=== PATIENT | male | born 1930 | race Caucasian/White ===

== ENCOUNTER 2019-06-28 09:51 | Inpatient (IN) | payer MEDICARE ==
[2019-06-28 15:51] LABS: Basophils % (Auto) 0.3 % (0.0-1.8); Eosinophils % (Auto) 0.3 % (0.0-4.3); Hematocrit 42.7 % (35.5-45.6); Hemoglobin 14.1 gm/dl (11.8-15.2); Lymphocytes # (Auto) 1.4 K/mm3 (1.2-5.4); Lymphocytes % (Auto) 15.2 % (13.4-35.0); Mean Corpuscular HGB Conc 33 % (32-34); Mean Corpuscular Volume 93 fl (84-94); Monocytes # (Auto) 1.1 K/mm3 (0.0-0.8); Platelet Count 318 K/mm3 (140-440); Red Blood Count 4.59 M/mm3 (3.65-5.03); Red Cell Distribution Width 14.8 % (13.2-15.2)
[2019-06-28 16:15] LABS: Calcium 9.8 mg/dL (8.4-10.2)
[2019-06-28 16:16] LABS: Albumin 4.2 g/dL (3.9-5)
[2019-06-28 16:39] LABS: Chol/HDL Ratio 3.5 %
[2019-06-28] MEDS ORDERED: HALDOL IM PRN (19:54)
[2019-06-28] MEDS ORDERED: ATIVAN IM PRN (19:54)
--- NOTE | 2019-06-29 07:32 | History and Physical Report ---
GP History & Physical - History of Present Illness Date of admission: 06/28/19 Date of Examination: 06/29/19 Reason for Admission: Danger to self, Severe anxiety/depression Chief Complaint: Hallucination, dementia History of Present Illness: Nurses reported that patient was admitted 28 Jun 2019 for hallucination. Police found 89 year old male found wandering the street and unaware of his surroundings and location of his home. Family stated that this started in 2017 and has began to happen more frequently. Pt does not have any previous pysch history. Nurse states that family reported the pt normally have these episodes as time gets closer to the day his . Pt did not sleep well last night, only received 3 hours of sleep. Patient has been calm and pleasant. MSE Orientation: person Affect: calm and pleasant Mood: congruent with affect Thought Process: Disorganized Perceptions: none Speech: paucity Concentration: focused Motor activity: normal Level of consciousness: alert Memory: Recent Impaired, Remote Impaired Interaction: pleasant Legal Status: Involuntary Patient Problems: Current Active Problems Major neurocognitive disorder due to Alzheimer's disease, with behavioral disturbance (Acute) Reaction to Hospitalization: Accepting Medications and Allergies Allergies Allergy/AdvReac Type Severity Reaction Status Date / Time No Known Drug Allergies Allergy Unknown Verified 06/28/19 14:58 Home Medications Medication Instructions Recorded Confirmed Last Taken Type Aspirin EC 81 mg PO DAILY 06/28/19 06/28/19 06/28/19 10:00 History 81 mg Atorvastatin 20 mg PO HS 06/28/19 06/28/19 06/27/19 22:00 History Ciprofloxacin TAB 500 mg PO BID 06/28/19 06/28/19 06/28/19 10:00 History Famotidine [Pepcid] 20 mg PO DAILY 06/28/19 06/28/19 06/28/19 10:00 History Latanoprost 0.005% 1 drop OU HS 06/28/19 06/28/19 06/27/19 22:00 History Levothyroxine 25 mcg PO DAILY 06/28/19 06/28/19 06/28/19 07:30 History Linaclotide [Linzess] 72 mcg PO DAILY 06/28/19 06/28/19 06/28/19 10:00 History Metoprolol [Lopressor TAB] 25 mg PO DAILY 06/28/19 06/28/19 06/28/19 10:00 History 25 mg Metronidazole 500 mg PO Q8HR 06/28/19 06/28/19 06/28/19 10:00 History amLODIPine 5 mg PO DAILY 06/28/19 06/28/19 06/28/19 10:00 History traMADol [Ultram 50 MG tab] 50 mg PO TID 06/28/19 06/28/19 06/28/19 10:00 History Active Meds: Active Medications Haloperidol Lactate (Haldol) 5 mg IM Q6H PRN PRN Reason: Agitation Lorazepam (Ativan) 1 mg IM Q6H PRN PRN Reason: Agitation Substance History - Substance History Drug Use: none Hx Tobacco Use: No Alcohol Use: Yes Past psychiatric history - Past Medical History Past Medical History: hypertension, hyperlipidemia, other (Cardiac-pacemaker) Past Surgical History: No surgical history - Social History Social history: Review of Systems Psychiatric: memory loss, change in sleep habits, insomnia, hallucinations, confusion Results - Results Labs/Vitals: Laboratory Last Values WBC 8.9 K/mm3 (4.5-11.0) 06/28/19 15:32 RBC 4.59 M/mm3 (3.65-5.03) 06/28/19 15:32 Hgb 14.1 gm/dl (11.8-15.2) 06/28/19 15:32 Hct 42.7 % (35.5-45.6) 06/28/19 15:32 MCV 93 fl (84-94) 06/28/19 15:32 MCH 31 pg (28-32) 06/28/19 15:32 MCHC 33 % (32-34) 06/28/19 15:32 RDW 14.8 % (13.2-15.2) 06/28/19 15:32 Plt Count 318 K/mm3 (140-440) 06/28/19 15:32 Lymph % (Auto) 15.2 % (13.4-35.0) 06/28/19 15:32 [place] % (Auto) 12.0 % (0.0-7.3) H 06/28/19 15:32 Eos % (Auto) 0.3 % (0.0-4.3) 06/28/19 15:32 Baso % (Auto) 0.3 % (0.0-1.8) 06/28/19 15:32 Lymph # 1.4 K/mm3 (1.2-5.4) 06/28/19 15:32 [place] # 1.1 K/mm3 (0.0-0.8) H 06/28/19 15:32 Eos # 0.0 K/mm3 (0.0-0.4) 06/28/19 15:32 Baso # 0.0 K/mm3 (0.0-0.1) 06/28/19 15:32 Seg Neutrophils % 72.2 % (40.0-70.0) H 06/28/19 15:32 Seg Neutrophils # 6.4 K/mm3 (1.8-7.7) 06/28/19 15:32 Sodium 136 mmol/L (137-145) L 06/28/19 15:32 Potassium 4.9 mmol/L (3.6-5.0) 06/28/19 15:32 Chloride 97.4 mmol/L (98-107) L 06/28/19 15:32 Carbon Dioxide 23 mmol/L (22-30) 06/28/19 15:32 Anion Gap 21 mmol/L 06/28/19 15:32 BUN 23 mg/dL (9-20) H 06/28/19 15:32 Creatinine 1.4 mg/dL (0.8-1.5) 06/28/19 15:32 Estimated GFR 48 ml/min 06/28/19 15:32 BUN/Creatinine Ratio 16 % 06/28/19 15:32 Glucose 125 mg/dL (75-100) H 06/28/19 15:32 POC Glucose 124 (70-105) H 06/28/19 16:46 Hemoglobin A1c 5.7 % (4-6) 06/28/19 15:32 Calcium 9.8 mg/dL (8.4-10.2) 06/28/19 15:32 Total Bilirubin 0.60 mg/dL (0.1-1.2) 06/28/19 15:32 AST 25 units/L (5-40) 06/28/19 15:32 ALT 12 units/L (7-56) 06/28/19 15:32 Alkaline Phosphatase 114 units/L (35-129) 06/28/19 15:32 Total Protein 9.1 g/dL (6.3-8.2) H 06/28/19 15:32 Albumin 4.2 g/dL (3.9-5) 06/28/19 15:32 Albumin/Globulin Ratio 0.9 % 06/28/19 15:32 Triglycerides 73 mg/dL (2-149) 06/28/19 15:32 Cholesterol 119 mg/dL (50-199) 06/28/19 15:32 LDL Cholesterol Direct 77 mg/dL (50-130) 06/28/19 15:32 HDL Cholesterol 34 mg/dL (40-59) L 06/28/19 15:32 Cholesterol/HDL Ratio 3.50 % 06/28/19 15:32 Last Vital Signs Temp 97.7 F 06/28/19 22:40 Pulse 60 06/28/19 22:40 Resp 18 06/28/19 22:40 BP 165/63 06/28/19 22:40 Pulse Ox 99 06/28/19 22:40 Physical Examination - Constitutional Vitals: Vital Signs Temp Pulse Resp BP Pulse Ox 97.7 F 60 18 165/63 99 06/28/19 22:40 06/28/19 22:40 06/28/19 22:40 06/28/19 22:40 06/28/19 22:40 Temperature -Last 24 Hours Temperature 97.7 F Temperature 97.5 F Temperature 97.3 F General appearance: Present: no acute distress - EENT Eyes: Present: PERRL, EOM intact, irregular pupil ENT: hearing intact, clear oral mucosa - Neck Neck: Present: supple, normal ROM Mental Status Exam - Vital signs Last Vital Signs Temp 97.7 F 06/28/19 22:40 Pulse 60 06/28/19 22:40 Resp 18 06/28/19 22:40 BP 165/63 06/28/19 22:40 Pulse Ox 99 06/28/19 22:40 Assessment and Plan - Psychiatric problem (1) Major neurocognitive disorder due to Alzheimer's disease, with behavioral disturbance Current Visit: Yes Status: Acute plan to address problem: Patient will be admitted for inpatient psychiatric evaluation, medication adjustment and close monitoring The patient's behavior, mood, sleep and appetite will be closely monitored. Patient will be enrolled in individual and group therapeutic sessions and encouraged to attend. Patient will be provided with a safe and structured environment. Patient's physical health needs will be addressed by the Hospitalist. Social Assessment will be completed and the High Man will work with patient and family to ensure a suitable and safe disposition Medication adjustment will be made as clinically indicated The patient agreed on the treatment plan, understood the risk, benefit, alternative treatment, potential consequence of no treatment, and gave informed consent. Physician Certification - Certification Statement Physician Certification Statement: This is an acknowledgement statement that ELENA VILLASEÑOR is a 89 year old M who requires inpatient psychiatric admission for treatment which could reasonably be expected to improve the patient's condition for confusion Estimated period of time patient will need to remain in the hospital: 7 days Plan for post-hospital care: out-patient care
[2019-06-29] MEDS ORDERED: METRONIDAZOLE 500 MG PO SCH (08:30)
[2019-06-29] MEDS: HALFPRIN EC PO SCH (09:45)
[2019-06-29] MEDS: PEPCID PO SCH (09:49)
[2019-06-29] MEDS: SYNTHROID PO SCH (09:50)
[2019-06-29] MEDS ORDERED: NON-FORMULARY (Amlodipine 5 MG) PO SCH (10:00)
[2019-06-29] MEDS ORDERED: LINACLOTIDE 72 MCG PO SCH (10:00)
[2019-06-29] MEDS ORDERED: LEVOTHYROXINE 25 MCG PO SCH (10:00)
[2019-06-29] MEDS ORDERED: CIPROFLOXACIN 500 MG PO SCH (10:00)
[2019-06-29] MEDS ORDERED: NON-FORMULARY (Aspirin Ec 81 MG) PO SCH (10:00)
[2019-06-29] MEDS: METOPROLOL PO SCH (11:01)
[2019-06-29] MEDS: ULTRAM PO SCH ×3 (11:54→20:40)
[2019-06-29] MEDS: FLAGYL PO SCH ×2 (18:30→21:03)
[2019-06-29] MEDS: LATANOPROST 0.005% OU SCH (18:34)
[2019-06-29] MEDS: LEVAQUIN PO SCH (19:20)
[2019-06-29] MEDS ORDERED: NON-FORMULARY (Atorvastatin 20 MG) PO SCH (22:00)
[2019-06-29] MEDS ORDERED: NON-FORMULARY (Latanoprost 0.005% 1 DROP) OU SCH (22:00)
[2019-06-30] MEDS: FLAGYL PO SCH ×3 (05:39→21:19)
[2019-06-30] MEDS: SYNTHROID PO SCH (05:39)
[2019-06-30] MEDS: ULTRAM PO SCH ×3 (10:12→20:21)
[2019-06-30] MEDS: HALFPRIN EC PO SCH (10:13)
[2019-06-30] MEDS: PEPCID PO SCH (10:13)
[2019-06-30] MEDS: LEVAQUIN PO SCH (10:14)
--- NOTE | 2019-06-30 10:15 | Progress Note ---
Subjective Date of service: 06/30/19 Principal diagnosis: Dementia Subjective Comment: Met with 89 year old , retired, male regarding the reason for him being admitted. Pt states that he is unsure why he is here. Pt lives alone but daughter and sister stay next door. 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 Pt reports that he was going to check on the dogs and it was raining so that kept him out longer than he had planned. He said an officer then got him because he believed that he was lost and wandering the streets. Pt said he was then taken to a hospital where they had requested him to stay overnight and he stated that it was fine and he would stay. Pt stated that shortly after this incident an ambulance picked him up and placed him here and he had no clue what was going on. Pt denies that he was loss and denies any memory loss issues. Pt states that the only weapons in possession is used to taylor. Pt denies any legal history and states that he had never been admitted nor seen a psychiatrist. Pt denies hearing voices, hallucination, or paranoia. Pt reported that he has no family history of dementia. Pt denies the use of drugs, tobacco or alcohol. Pt denies SI/AVH/HI MSE Orientation: person Affect: pleasant and calm Mood: congruent with affect Thought Process: organized Perceptions: none Speech: paucity Concentration: focus Motor activity: normal Level of consciousness: alert Memory: Recent Impaired, Remote Impaired Interaction: cooperative Objective - Criteria for Continued Treatment Criteria for Continued Treatment: Improving Level of Functioning - Mental Status Mental Status: Oriented x [address] - Objective Observation Participation Level: Full Assessment and Plan - Patient Problems (1) Major neurocognitive disorder due to Alzheimer's disease, with behavioral disturbance Current Visit: Yes Status: Acute Plan to address problem: Patient will be admitted for inpatient psychiatric evaluation, medication adjustment and close monitoring The patient's behavior, mood, sleep and appetite will be closely monitored. Patient will be enrolled in individual and group therapeutic sessions and encouraged to attend. Patient will be provided with a safe and structured environment. Patient's physical health needs will be addressed by the Hospitalist. Social Assessment will be completed and the Trolley Car Operator will work with patient and family to ensure a suitable and safe disposition Medication adjustment will be made as clinically indicated The patient agreed on the treatment plan, understood the risk, benefit, alternative treatment, potential consequence of no treatment, and gave informed consent. Medications and Allergies Allergies Allergy/AdvReac Type Severity Reaction Status Date / Time No Known Drug Allergies Allergy Unknown Verified 06/28/19 14:58 Home Medications Medication Instructions Recorded Confirmed Last Taken Type Aspirin EC 81 mg PO DAILY 06/28/19 06/28/19 06/28/19 10:00 History 81 mg Atorvastatin 20 mg PO HS 06/28/19 06/28/19 06/27/19 22:00 History Ciprofloxacin TAB 500 mg PO BID 06/28/19 06/28/19 06/28/19 10:00 History Famotidine [Pepcid] 20 mg PO DAILY 06/28/19 06/28/19 06/28/19 10:00 History Latanoprost 0.005% 1 drop OU HS 06/28/19 06/28/19 06/27/19 22:00 History Levothyroxine 25 mcg PO DAILY 06/28/19 06/28/19 06/28/19 07:30 History Linaclotide [Linzess] 72 mcg PO DAILY 06/28/19 06/28/19 06/28/19 10:00 History Metoprolol [Lopressor TAB] 25 mg PO DAILY 06/28/19 06/28/19 06/28/19 10:00 History 25 mg Metronidazole 500 mg PO Q8HR 06/28/19 06/28/19 06/28/19 10:00 History amLODIPine 5 mg PO DAILY 06/28/19 06/28/19 06/28/19 10:00 History traMADol [Ultram 50 MG tab] 50 mg PO TID 06/28/19 06/28/19 06/28/19 10:00 History Active Meds: Active Medications Amlodipine Besylate (Norvasc) 5 mg PO QDAY [facility] Last Admin: 06/29/19 11:00 Dose: 5 mg Documented by: Aspirin (Halfprin Ec) 81 mg PO QDAY [facility] Last Admin: 06/29/19 09:45 Dose: 81 mg Documented by: Atorvastatin Calcium (Lipitor) 20 mg PO QHS [facility] Last Admin: 06/29/19 21:03 Dose: 20 mg Documented by: Famotidine (Pepcid) 20 mg PO DAILY [facility] Last Admin: 06/29/19 09:49 Dose: 20 mg Documented by: Haloperidol Lactate (Haldol) 5 mg IM Q6H PRN PRN Reason: Agitation Latanoprost (Latanoprost 0.005%) 1 drops OU QPM [facility] Last Admin: 06/29/19 18:34 Dose: 1 drops Documented by: Levofloxacin (Levaquin) 250 mg PO DAILY [facility] Stop: 07/06/19 10:01 Last Admin: 06/29/19 19:20 Dose: 250 mg Documented by: Levothyroxine Sodium (Synthroid) 25 mcg PO DAILY@0600 [facility] Last Admin: 06/30/19 05:39 Dose: 25 mcg Documented by: Lorazepam (Ativan) 1 mg IM Q6H PRN PRN Reason: Agitation Metoprolol Tartrate (Lopressor) 25 mg PO DAILY [facility] Last Admin: 06/29/19 11:01 Dose: 25 mg Documented by: Metronidazole (Flagyl) 500 mg PO Q8HR [facility] Last Admin: 06/30/19 05:39 Dose: 500 mg Documented by: Miscellaneous Medication (Linaclotide [Linzess]) 72 mcg PO DAILY [facility] Tramadol HCl (Ultram) 50 mg PO TID [facility] Last Admin: 06/29/19 20:40 Dose: 50 mg Documented by: Results - Results Labs/Vitals: Laboratory Last Values WBC 8.9 K/mm3 (4.5-11.0) 06/28/19 15:32 RBC 4.59 M/mm3 (3.65-5.03) 06/28/19 15:32 Hgb 14.1 gm/dl (11.8-15.2) 06/28/19 15:32 Hct 42.7 % (35.5-45.6) 06/28/19 15:32 MCV 93 fl (84-94) 06/28/19 15:32 MCH 31 pg (28-32) 06/28/19 15:32 MCHC 33 % (32-34) 06/28/19 15:32 RDW 14.8 % (13.2-15.2) 06/28/19 15:32 Plt Count 318 K/mm3 (140-440) 06/28/19 15:32 Lymph % (Auto) 15.2 % (13.4-35.0) 06/28/19 15:32 [place] % (Auto) 12.0 % (0.0-7.3) H 06/28/19 15:32 Eos % (Auto) 0.3 % (0.0-4.3) 06/28/19 15:32 Baso % (Auto) 0.3 % (0.0-1.8) 06/28/19 15:32 Lymph # 1.4 K/mm3 (1.2-5.4) 06/28/19 15:32 [place] # 1.1 K/mm3 (0.0-0.8) H 06/28/19 15:32 Eos # 0.0 K/mm3 (0.0-0.4) 06/28/19 15:32 Baso # 0.0 K/mm3 (0.0-0.1) 06/28/19 15:32 Seg Neutrophils % 72.2 % (40.0-70.0) H 06/28/19 15:32 Seg Neutrophils # 6.4 K/mm3 (1.8-7.7) 06/28/19 15:32 Sodium 136 mmol/L (137-145) L 06/28/19 15:32 Potassium 4.9 mmol/L (3.6-5.0) 06/28/19 15:32 Chloride 97.4 mmol/L (98-107) L 06/28/19 15:32 Carbon Dioxide 23 mmol/L (22-30) 06/28/19 15:32 Anion Gap 21 mmol/L 06/28/19 15:32 BUN 23 mg/dL (9-20) H 06/28/19 15:32 Creatinine 1.4 mg/dL (0.8-1.5) 06/28/19 15:32 Estimated GFR 48 ml/min 06/28/19 15:32 BUN/Creatinine Ratio 16 % 06/28/19 15:32 Glucose 125 mg/dL (75-100) H 06/28/19 15:32 POC Glucose 124 (70-105) H 06/28/19 16:46 Hemoglobin A1c 5.7 % (4-6) 06/28/19 15:32 Calcium 9.8 mg/dL (8.4-10.2) 06/28/19 15:32 Total Bilirubin 0.60 mg/dL (0.1-1.2) 06/28/19 15:32 AST 25 units/L (5-40) 06/28/19 15:32 ALT 12 units/L (7-56) 06/28/19 15:32 Alkaline Phosphatase 114 units/L (35-129) 06/28/19 15:32 Total Protein 9.1 g/dL (6.3-8.2) H 06/28/19 15:32 Albumin 4.2 g/dL (3.9-5) 06/28/19 15:32 Albumin/Globulin Ratio 0.9 % 06/28/19 15:32 Triglycerides 73 mg/dL (2-149) 06/28/19 15:32 Cholesterol 119 mg/dL (50-199) 06/28/19 15:32 LDL Cholesterol Direct 77 mg/dL (50-130) 06/28/19 15:32 HDL Cholesterol 34 mg/dL (40-59) L 06/28/19 15:32 Cholesterol/HDL Ratio 3.50 % 06/28/19 15:32 Last Vital Signs Temp 97.7 F 06/29/19 21:44 Pulse 63 06/29/19 21:44 Resp 18 06/29/19 21:44 BP 154/51 06/29/19 21:44 Pulse Ox 100 06/29/19 21:44
[2019-06-30] MEDS: METOPROLOL PO SCH (11:00)
[2019-06-30] MEDS: LATANOPROST 0.005% OU SCH (18:24)
[2019-07-01] MEDS: FLAGYL PO SCH (06:08)
[2019-07-01] MEDS: SYNTHROID PO SCH (06:08)
--- NOTE | 2019-07-01 08:13 | Discharge Summary ---
Providers - Providers Date of Admission: 06/28/19 13:42 Date of discharge: 07/01/19 Attending physician: LORENA JUAN MD Primary care physician: LORENA JUAN MD Hospitalization Reason for admission: Police found patient wandering the street and unaware of his surroundings Condition: Stable Hospital course: The patient was provided inpatient psychiatric treatment with safe and supportive environment, group therapy, individual counseling, psychiatric medication, medication adjustment, adverse effect monitor, medical evaluation, medical treatment, social service assessment, family/social support meeting, placement assessment and psycho-education. The patients mood, anxiety, thoughts, stress management skill, cognition, impulse/anger control, motivation, understanding of disease, compliance to treatment and appreciation on family/social support are improved and stabilized. At the time of discharge, the patient had no suicidal ideas, no homicidal ideas, no aggressive thoughts, no endangering behavior and no debilitating adverse effects. Disposition: - TO HOME OR SELFCARE Allergies/Adverse Reactions: Allergies No Known Drug Allergies Allergy (Verified 06/28/19 14:58) Unknown Vital Signs: Last Vital Signs Temp 98.7 F 06/30/19 22:00 Pulse 73 06/30/19 22:00 Resp 18 06/30/19 22:00 BP 135/49 06/30/19 22:00 Pulse Ox 98 06/30/19 22:00 Last Lab: Laboratory Last Values WBC 8.9 K/mm3 (4.5-11.0) 06/28/19 15:32 RBC 4.59 M/mm3 (3.65-5.03) 06/28/19 15:32 Hgb 14.1 gm/dl (11.8-15.2) 06/28/19 15:32 Hct 42.7 % (35.5-45.6) 06/28/19 15:32 MCV 93 fl (84-94) 06/28/19 15:32 MCH 31 pg (28-32) 06/28/19 15:32 MCHC 33 % (32-34) 06/28/19 15:32 RDW 14.8 % (13.2-15.2) 06/28/19 15:32 Plt Count 318 K/mm3 (140-440) 06/28/19 15:32 Lymph % (Auto) 15.2 % (13.4-35.0) 06/28/19 15:32 Long % (Auto) 12.0 % (0.0-7.3) H 06/28/19 15:32 Eos % (Auto) 0.3 % (0.0-4.3) 06/28/19 15:32 Baso % (Auto) 0.3 % (0.0-1.8) 06/28/19 15:32 Lymph # 1.4 K/mm3 (1.2-5.4) 06/28/19 15:32 Long # 1.1 K/mm3 (0.0-0.8) H 06/28/19 15:32 Eos # 0.0 K/mm3 (0.0-0.4) 06/28/19 15:32 Baso # 0.0 K/mm3 (0.0-0.1) 06/28/19 15:32 Seg Neutrophils % 72.2 % (40.0-70.0) H 06/28/19 15:32 Seg Neutrophils # 6.4 K/mm3 (1.8-7.7) 06/28/19 15:32 Sodium 136 mmol/L (137-145) L 06/28/19 15:32 Potassium 4.9 mmol/L (3.6-5.0) 06/28/19 15:32 Chloride 97.4 mmol/L (98-107) L 06/28/19 15:32 Carbon Dioxide 23 mmol/L (22-30) 06/28/19 15:32 Anion Gap 21 mmol/L 06/28/19 15:32 BUN 23 mg/dL (9-20) H 06/28/19 15:32 Creatinine 1.4 mg/dL (0.8-1.5) 06/28/19 15:32 Estimated GFR 48 ml/min 06/28/19 15:32 BUN/Creatinine Ratio 16 % 06/28/19 15:32 Glucose 125 mg/dL (75-100) H 06/28/19 15:32 POC Glucose 124 (70-105) H 06/28/19 16:46 Hemoglobin A1c 5.7 % (4-6) 06/28/19 15:32 Calcium 9.8 mg/dL (8.4-10.2) 06/28/19 15:32 Total Bilirubin 0.60 mg/dL (0.1-1.2) 06/28/19 15:32 AST 25 units/L (5-40) 06/28/19 15:32 ALT 12 units/L (7-56) 06/28/19 15:32 Alkaline Phosphatase 114 units/L (35-129) 06/28/19 15:32 Total Protein 9.1 g/dL (6.3-8.2) H 06/28/19 15:32 Albumin 4.2 g/dL (3.9-5) 06/28/19 15:32 Albumin/Globulin Ratio 0.9 % 06/28/19 15:32 Triglycerides 73 mg/dL (2-149) 06/28/19 15:32 Cholesterol 119 mg/dL (50-199) 06/28/19 15:32 LDL Cholesterol Direct 77 mg/dL (50-130) 06/28/19 15:32 HDL Cholesterol 34 mg/dL (40-59) L 06/28/19 15:32 Cholesterol/HDL Ratio 3.50 % 06/28/19 15:32 - Discharge Diagnoses (1) Major neurocognitive disorder due to Alzheimer's disease, with behavioral disturbance Status: Acute Core Measure Documentation - Palliative Care Palliative Care/ Comfort Measures: Not Applicable - Core Measures Any of the following diagnoses?: none Exam - Constitutional Vitals: Temp Pulse Resp BP Pulse Ox 98.7 F 73 18 135/49 98 06/30/19 22:00 06/30/19 22:00 06/30/19 22:00 06/30/19 22:00 06/30/19 22:00 General appearance: Present: no acute distress - EENT Eyes: Present: PERRL, EOM intact ENT: hearing intact, clear oral mucosa - Neck Neck: Present: supple, normal ROM - Respiratory Respiratory effort: normal Plan Activity: advance as tolerated Weight Bearing Status: Weight Bear as Tolerated Care Plan Goals: Maintain good mood Plan of Treatment: Take medications as prescribed Health Concerns: Memory decline Assessment: Dementia Follow up with: LORENA JUAN MD [Primary Care Provider] - 7 Days Prescriptions: Donepezil [Aricept] 5 mg PO QHS #30 tablet metroNIDAZOLE [Flagyl TAB] 500 mg PO Q8HR #14 tablet levoFLOXacin [Levaquin TAB] 250 mg PO DAILY #7 tablet
[2019-07-01 12:06] VITALS: BP 105/54
[2019-07-01] MEDS ORDERED: ARICEPT PO SCH (22:00)
== END 2019-07-01 10:30 | disposition home or self-care (01) | DRG 57 ==
LOC: 5A 13:42
PROVIDERS: ADMIT Psychiatry & Neurology Psychiatry; ATTEND Psychiatry & Neurology Psychiatry
DX: G30.0 Alzheimer's disease with early onset (principal); F02.81 Dementia in other diseases classified elsewhere, unspecified severity, with behavioral disturbance; I10 Essential (primary) hypertension; Z79.82 Long term (current) use of aspirin; Z79.899 Other long term (current) drug therapy; Z72.89 Other problems related to lifestyle; Z95.0 Presence of cardiac pacemaker
CPT/HCPCS: 36415; 80053; 80061; 82962; 83036; 85025; G0378; A9270-GY